=== PATIENT | female | born 1970 | race Caucasian/White ===

== ENCOUNTER 2024-04-13 08:51 | Emergency (ER) | payer OTHER ==
[2024-04-13 09:03] VITALS: TEMP 98.5
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
[2024-04-13 10:36] VITALS: RESP 18
[2024-04-13 10:42] VITALS: BP 129/79; PULSE 75
== END 2024-04-13 10:44 | disposition home or self-care (01) ==
LOC: EC 08:51
DX: M54.2 Cervicalgia (principal); S16.1XXA Strain of muscle, fascia and tendon at neck level, initial encounter; V43.52XA Car driver injured in collision with other type car in traffic accident, initial encounter; Y92.410 Unspecified street and highway as the place of occurrence of the external cause
CPT/HCPCS: 70450; 72125; 99284